=== PATIENT | male | born 2000 | race Caucasian/White ===

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

== ENCOUNTER 2019-07-25 18:43 | Emergency (ER) | payer SELFPAY ==
[~2019-07-25] VITALS: Ht 170.2 cm; Wt 95.0 kg
[~2019-07-25 18:43] MED LIST changes: +ACET-141 PO; +AMOX500C2 PO; +D-ME473S2 PO; +ONDA4TAB14 PO; +UDMYL PO
[2019-07-25 18:52] VITALS: Ht 170.2 cm; Wt 95.0 kg
[2019-07-25] MEDS ORDERED: LIDOCAINE/MYLANTA 40 ML BTL PO STA (20:21)
[2019-07-25] MEDS ORDERED: ACETAMINOPHEN 325 MG TAB PO ONE (20:30)
[2019-07-25 21:25] VITALS: BP 141/87; PULSE 74; RESP 16
== END 2019-07-25 21:25 | disposition home or self-care (01) ==
LOC: FTE 18:43
DX: R10.32 Left lower quadrant pain (principal); R05 Cough
CPT/HCPCS: 36415; 80053; 81001; 83690; 85025; 99283